=== PATIENT | female | born 1995 | race Caucasian/White ===

== ENCOUNTER → 2016-09-08 | Outpatient (CLI) | payer MEDICAID | LOC: OD 10:50 | PROVIDERS: ATTEND Obstetrics & Gynecology | DX: N91.2 Amenorrhea, unspecified (principal) | CPT/HCPCS: 36415; 84702 ==

== ENCOUNTER 2016-10-02 19:33 | Emergency (ER) | payer MEDICAID ==
[2016-10-02] MEDS ORDERED: ACETAMINOPHEN 325 MG TABLET PO ONE (20:24)
--- NOTE | 2016-10-02 20:25 | ER Document Report ---
ED Medical Screen (RME) - General Stated Complaint: LEFT FLANK PAIN,PAINFUL URINATION Mode of Arrival: Ambulatory Information source: Patient Notes: 21 y/o F presents to ED c/o left flank pain with associated dysuria over the last week. Reports is approximately 10 weeks . . Denies fever, hematuria, vaginal bleeding or discharge. I have greeted and performed a rapid initial assessment of this patient. A comprehensive ED assessment and evaluation of the patient, analysis of test results and completion of the medical decision making process will be conducted by additional ED providers. TRAVEL OUTSIDE OF THE [place] IN LAST 30 DAYS: No - Related Data Allergies/Adverse Reactions: No Known Allergies Allergy (Verified 02/20/15 21:34) Past Medical History Past Surgical History: Reports: Hx Gynecologic Surgery - Left fallopian tube removed Physical Exam - Vital signs Vitals: Temp Pulse Resp BP Pulse Ox 98.2 F 81 16 115/69 99 10/02/16 20:01 10/02/16 20:01 10/02/16 20:01 10/02/16 20:01 10/02/16 20:01 - General General appearance: Appears well, Alert In distress: None - Respiratory Respiratory status: No respiratory distress Course - Vital Signs Vital signs: Temp Pulse Resp BP Pulse Ox 98.2 F 81 16 115/69 99 10/02/16 20:01 10/02/16 20:01 10/02/16 20:01 10/02/16 20:01 10/02/16 20:01
[2016-10-02] MEDS ORDERED: ONDANSETRON 4 MG TAB.RAPDIS PO ONE (21:21)
--- NOTE | 2016-10-02 21:21 | ER Document Report ---
ED GI/ - General Chief Complaint: Low Back Pain Stated Complaint: LEFT FLANK PAIN,PAINFUL URINATION Mode of Arrival: Ambulatory Notes: Patient is a 21-year-old female, at 10 weeks gestation by last menstrual period, the comes emergency department for chief complaint of one week of worsening pain in her left flank, she states that she has pain with urination, flank pain is worse when she urinates, she states that over the past day or so she started to become nauseated intermittently. She denies vomiting, fever, denies any abdominal pain, denies vaginal discharge or bleeding. Denies history of kidney stones. TRAVEL OUTSIDE OF THE [place] IN LAST 30 DAYS: No - Related Data Allergies/Adverse Reactions: No Known Allergies Allergy (Verified 10/02/16 20:28) Past Medical History - General Information source: Patient - Social History Smoking Status: Former Smoker Chew tobacco use (# tins/day): No Frequency of alcohol use: None Drug Abuse: None Lives with: Family Family History: Reviewed & Not Pertinent Patient has suicidal ideation: No Patient has homicidal ideation: No - Medical History Medical History: Negative Renal/ Medical History: Denies: Hx Peritoneal Dialysis Past Surgical History: Reports: Hx Gynecologic Surgery - Left fallopian tube removed Review of Systems - Review of Systems Constitutional: No symptoms reported EENT: No symptoms reported Cardiovascular: No symptoms reported Respiratory: No symptoms reported Gastrointestinal: See HPI Genitourinary: See HPI Female Genitourinary: No symptoms reported Musculoskeletal: See HPI Skin: No symptoms reported Hematologic/Lymphatic: No symptoms reported Neurological/Psychological: No symptoms reported Physical Exam - Vital signs Vitals: Temp Pulse Resp BP Pulse Ox 98.2 F 81 16 115/69 99 10/02/16 20:01 10/02/16 20:01 10/02/16 20:01 10/02/16 20:01 10/02/16 20:01 Interpretation: Normal - General General appearance: Appears well, Alert In distress: None - HEENT Head: Normocephalic, Atraumatic Eyes: Normal Conjunctiva: Normal Extraocular movements intact: Yes Eyelashes: Normal Pupils: PERRL Mucous membranes: Normal Pharynx: Normal Neck: Normal - Respiratory Respiratory status: No respiratory distress Chest status: Nontender Breath sounds: Normal. No: Decreased air movement, Wheezing Chest palpation: Normal - Cardiovascular Rhythm: Regular. No: Tachycardia Heart sounds: Normal auscultation, S1 appreciated, S2 appreciated Murmur: No - Abdominal Inspection: Normal Distension: No distension Bowel sounds: Normal Tenderness: Nontender - Completely soft and nontender, no guarding. No: Tender , Guarding Organomegaly: No organomegaly - Back Back: Tender - Patient is tender in the left CVA area but also extending down along the paraspinal muscles down the lumbar spine. No midline tenderness, no saddle anesthesia, normal upper and lower extremity range of motion, normal distal neurovascular exam - Extremities General upper extremity: Normal inspection, Nontender, Normal color, Normal ROM , Normal temperature General lower extremity: Normal inspection, Nontender, Normal color, Normal ROM , Normal temperature, Normal weight bearing. No: Karen's sign - Neurological Neuro grossly intact: Yes Cognition: Normal Orientation: AAOx4 [place] Coma Scale Eye Opening: Spontaneous Yvan Coma Scale Verbal: Oriented [place] Coma Scale Motor: Obeys Commands Yvan Coma Scale Total: 15 Speech: Normal Motor strength normal: LUE, RUE, LLE, RLE Sensory: Normal - Psychological Associated symptoms: Normal affect, Normal mood - Skin Skin Temperature: Warm Skin Moisture: Dry Skin Color: Normal Course - Re-evaluation Re-evalutation: Urine generally unremarkable, however patient is complaining of dysuria specifically, she is , treating with Keflex. Patient has flank pain which appears to be muscular on examination, there is mild leukocytosis which is nonspecific, patient is not febrile, not tachycardic, not hypotensive. Chemistries unremarkable. HCG ordered by triage is positive. Patient requests something for her back pain dental bur sleep, given Flexeril, told her to use it minimally if possible, discussed follow-up and return precautions, patient and state understanding and agreement. - Vital Signs Vital signs: Temp Pulse Resp BP Pulse Ox 98.4 F 74 16 121/72 99 10/02/16 23:40 10/02/16 23:40 10/02/16 23:40 10/02/16 23:40 10/02/16 23:40 - Laboratory Result Diagrams: 10/02/16 20:55 10/02/16 20:55 Laboratory results interpreted by me: 10/02/16 10/02/16 10/02/16 20:55 20:55 20:55 WBC 13.8 H Absolute Neutrophils 10.6 H Beta HCG, Quant 60963.00 H Urine Protein 30 H Ur Leukocyte Esterase TRACE H Discharge - Discharge Clinical Impression: Flank pain, Dysuria Condition: Stable Disposition: HOME, SELF-CARE Additional Instructions: Take the Keflex antibiotic as directed for urinary symptoms. Take Zofran if needed for nausea, most likely related to . Follow up with [facility] as planned. Take Tylenol for pain, apply heat to her lower back, take the Flexeril only if needed. Return the emergency department for any concerning or worsening symptoms including vomiting, fever, abdominal pain, etc. Prescriptions: Cephalexin Monohydrate [Keflex 500 mg Capsule] 500 mg PO BID #10 capsule Cyclobenzaprine HCl [Flexeril 5 mg Tablet] 5 mg PO TID #15 tablet Ondansetron [Zofran Odt 4 mg Tablet] 1 - 2 tab PO Q4H PRN #30 tab.rapdis PRN Reason: For Nausea/Vomiting
[2016-10-02 21:35] LABS: ABSOLUTE BASOPHILS # (AUTO) 0.1 10^3/uL (0.0-0.2); ABSOLUTE EOSINOPHILS # (AUTO) 0.2 10^3/uL (0.0-0.6); ABSOLUTE LYMPHOCYTES (AUTO) 2.3 10^3/uL (0.5-4.7); ABSOLUTE MONOCYTES (AUTO) 0.7 10^3/uL (0.1-1.4); ABSOLUTE NEUT (AUTO) 10.6 10^3/uL (1.7-8.2); BASOPHILS % (AUTO) 0.6 % (0-2); EOSINOPHILS % (AUTO) 1.2 % (0-6); HEMATOCRIT 40.1 % (36.0-47.0); HEMOGLOBIN 14.1 g/dL (12.0-15.5); HGB HCT DIFFERENCE 2.2; LYMPHOCYTES % (AUTO) 16.7 % (13-45); MEAN CORPUSCULAR HEMOGLOBIN 31.5 pg (27.0-33.4); MEAN CORPUSCULAR HGB CONC 35.1 g/dL (32.0-36.0); MEAN CORPUSCULAR VOLUME 90 fl (80-97); MONOCYTES % (AUTO) 4.7 % (3-13); RED BLOOD COUNT 4.46 10^6/uL (3.72-5.28); RED CELL DISTRIBUTION WIDTH 13.9 % (11.5-14.0); SEGMENTED NEUTROPHILS % (AUTO) 76.8 % (42-78); WHITE BLOOD COUNT 13.8 10^3/uL (4.0-10.5)
[2016-10-02 21:40] LABS: APPEARANCE,URINE SLIGHTLY-CLOUDY; BILIRUBIN,URINE NEGATIVE (NEGATIVE); GLUCOSE, URINE NEGATIVE (NEGATIVE); KETONES,URINE NEGATIVE (NEGATIVE); LEUKOCYTE ESTERASE,URINE TRACE (NEGATIVE); NITRITE,URINE NEGATIVE (NEGATIVE); PROTEIN,URINE 30 mg/dL (NEGATIVE); URINE SPECIFIC GRAVITY 1.027; UROBILINOGEN,URINE NEGATIVE mg/dL (<2.0)
[2016-10-02 21:52] LABS: ALANINE AMINOTRANSFERASE 18 U/L (9-52); ALBUMIN 4.7 g/dL (3.5-5.0); ALKALINE PHOSPHATASE 54 U/L (38-126); ANION GAP 14 (5-19); ASPARTATE AMINO TRANSFERASE 19 U/L (14-36); BILIRUBIN,TOTAL 0.6 mg/dL (0.2-1.3); BLOOD UREA NITROGEN 7 mg/dL (7-20); CALCIUM 9.6 mg/dL (8.4-10.2); CARBON DIOXIDE 24 mmol/L (22-30); CHLORIDE 102 mmol/L (98-107); CREATININE RESULT 0.62 mg/dL (0.52-1.25); GLUCOSE 82 mg/dL (75-110); POTASSIUM 4.3 mmol/L (3.6-5.0); SODIUM 139.5 mmol/L (137-145); TOTAL PROTEIN 7.7 g/dL (6.3-8.2)
[2016-10-02] MEDS ORDERED: CEPHALEXIN 500 MG CAPSULE PO ONE (22:53)
[2016-10-02] MEDS ORDERED: CYCLOBENZAPRINE HCL 10 MG TABLET PO ONE (23:00)
[2016-10-02 23:50] VITALS: BP 121/72
== END 2016-10-02 23:40 | disposition home or self-care (01) ==
LOC: ER 19:33
DX: O26.91 Pregnancy related conditions, unspecified, first trimester (principal); M54.5 Low back pain; R30.0 Dysuria; R10.9 Unspecified abdominal pain; Z3A.10 10 weeks gestation of pregnancy
CPT/HCPCS: 99283; 36415; 84702; 85025; 80053; 81001; J3490 ×2; S0119

== ENCOUNTER 2016-11-01 23:40 | Emergency (ER) | payer MEDICAID ==
[2016-11-02] MEDS ORDERED: PENICILLIN G BENZATHINE 1.2 MILLION UNIT/2 ML DISP.SYRIN IM ONE (00:50)
[2016-11-02] MEDS ORDERED: HYDROCODONE/ACETAMINOPHEN 5-325 MG TABLET PO ONE (00:51)
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
[2016-11-02 04:02] VITALS: BP 118/69
== END 2016-11-02 04:03 | disposition home or self-care (01) ==
LOC: ER 23:40
DX: S03.2XXA Dislocation of tooth, initial encounter (principal); Z33.1 Pregnant state, incidental; Z3A.15 15 weeks gestation of pregnancy; X58.XXXA Exposure to other specified factors, initial encounter
CPT/HCPCS: 99283; 96372; 70486; J0561

== ENCOUNTER 2017-03-05 18:17 | Outpatient (CLI) | payer MEDICAID ==
[2017-03-05 19:32] LABS: APPEARANCE,URINE CLOUDY; BILIRUBIN,URINE NEGATIVE (NEGATIVE); GLUCOSE, URINE 150 mg/dL (NEGATIVE); KETONES,URINE NEGATIVE (NEGATIVE); LEUKOCYTE ESTERASE,URINE TRACE (NEGATIVE); NITRITE,URINE NEGATIVE (NEGATIVE); PROTEIN,URINE NEGATIVE (NEGATIVE); UROBILINOGEN,URINE NEGATIVE mg/dL (<2.0)
[2017-03-05 19:52] LABS: URINE BARBITURATES SCREEN NEGATIVE; URINE METHADONE SCREEN NEGATIVE; URINE OPIATES LOW NEGATIVE
[2017-03-05 20:27] LABS: URINE PHENCYCLIDINE SCREEN NEGATIVE
== END 2017-03-05 19:32 | disposition home or self-care (01) ==
LOC: LC 18:17
PROVIDERS: ATTEND Student in an Organized Health Care Education/Training Program
PROC: 4A1HXCZ Monitoring of Products of Conception, Cardiac Rate, External Approach (ICD-10-PCS; principal; 2017-03-05)
DX: O47.03 False labor before 37 completed weeks of gestation, third trimester (principal); Z3A.32 32 weeks gestation of pregnancy
CPT/HCPCS: 59025; 81001; 80307; G0480 ×2

== ENCOUNTER 2017-03-27 18:49 | Outpatient (CLI) | payer MEDICAID ==
--- NOTE | 2017-03-27 19:03 | Non Stress Test Report ---
Non Stress Test Datetime Report Generated by CPN: 03/27/2017 19:03 DEMOGRAPHIC EGA NST: 32.4 INDICATION Indication for Study: Ordered by Provider VITAL SIGNS Temperature - NST: 98.3 Pulse - NST: 88 RESP - NST: 14 NBPSYS NST: 116 NBPDIA NST: 73 MONITORING Monitor Explained: Monitor Explained; Test Explained; Patient Verbalized Understanding Time on Monitor: 03/05/2017 18:43 Time off Monitor: 03/05/2017 19:26 NST Duration: 43 NST INTERVENTIONS NST Interventions: PO Hydration Physician Notified NST: Dr Smith BABY A: [id number] BABY A Movement : Present Contraction Frequency : none FHR Baseline : 145 (Annotations: Data stored by [facility] on behalf of user) Accelerations : 15X15 Decelerations : None Variability : Moderate 6-25bpm NST Review: Meets Criteria for Reactive NST NST Review and Verified By : Angelito Nunez RN NST Results: Reactive NST REPORT Report Trigger: Send Report
[2017-03-27 19:30] LABS: APPEARANCE,URINE SLIGHTLY-CLOUDY; BILIRUBIN,URINE NEGATIVE (NEGATIVE); GLUCOSE, URINE NEGATIVE (NEGATIVE); KETONES,URINE NEGATIVE (NEGATIVE); LEUKOCYTE ESTERASE,URINE NEGATIVE (NEGATIVE); NITRITE,URINE NEGATIVE (NEGATIVE); PROTEIN,URINE NEGATIVE (NEGATIVE); UROBILINOGEN,URINE NEGATIVE mg/dL (<2.0)
[2017-03-27 19:33] LABS: AMNISURE (ROM) NEGATIVE (NEGATIVE)
[2017-03-27 19:45] LABS: URINE BARBITURATES SCREEN NEGATIVE; URINE METHADONE SCREEN NEGATIVE; URINE OPIATES LOW NEGATIVE; URINE PHENCYCLIDINE SCREEN NEGATIVE
[2017-03-27] MEDS ORDERED: HYDROXYZINE PAMOATE 50 MG CAPSULE PO ONE (20:34)
[2017-03-27] MEDS ORDERED: HYDROXYZINE PAMOATE 50 MG CAPSULE ONE (20:39)
[2017-03-27] MEDS ORDERED: RINGERS SOLUTION,LACTATED 1,250 ML IV ONE (21:16)
== END 2017-03-27 23:04 | disposition home or self-care (01) ==
LOC: LC 18:49
PROVIDERS: ATTEND Obstetrics & Gynecology
PROC: 4A1HXCZ Monitoring of Products of Conception, Cardiac Rate, External Approach (ICD-10-PCS; principal; 2017-03-27)
DX: Z34.93 Encounter for supervision of normal pregnancy, unspecified, third trimester (principal)
CPT/HCPCS: 59025; 84112; 81001; 80307; Q0114; J3490

== ENCOUNTER 2017-04-08 18:51 | Emergency (ER) | payer MEDICAID ==
[2017-04-08 19:07] VITALS: BP 124/77
[2017-04-08] MEDS ORDERED: LIDOCAINE 2% VISCOUS SOLN 20 ML UDCUP PO ONE (19:28)
--- NOTE | 2017-04-08 19:30 | ER Document Report ---
HPI - HPI Pain Level: 5 Notes: Patient is a 37 week female who presents the ED complaining of mouth pain to her recently excised #32 tooth. The mouth has been bothering her for the last day. Patient states that she had her tooth excised on . She has not noticed any obvious discharge, but noticed a little white area and that socket. Patient states that they did not suture the wound thereafter she is aware of. Patient states that she was on penicillin 2 days prior and has continued to be on penicillin since the procedure. She denies any drug allergies. Patient has been taking Tylenol with minimal relief. She still eating and drinking without any difficulties. Denies any headache, fever, neck pain/stiffness, URI, sore throat, chest pain, palpitations, syncope, cough, shortness of breath, wheeze, dyspnea, abdominal pain, nausea/vomiting/diarrhea, urinary retention, dysuria, hematuria, or rash. - ROS Notes: REVIEW OF SYSTEMS: CONSTITUTIONAL : Denies fever, chills, or sweats. Denies recent illness. EENT: see hpi CARDIOVASCULAR: Denies chest pain. Denies palpitations or racing or irregular heart beat. Denies ankle edema. RESPIRATORY: Denies cough, cold, or chest congestion. Denies shortness of breath, difficulty breathing, or wheezing. GASTROINTESTINAL: Denies abdominal pain or distention. Denies nausea, vomiting , or diarrhea. Denies blood in vomitus, stools, or per rectum. Denies black, tarry stools. Denies constipation. GENITOURINARY: Denies difficulty urinating, painful urination, burning, frequency, blood in urine, or discharge. MUSCULOSKELETAL: Denies back or neck pain or stiffness. Denies joint pain or swelling. SKIN: Denies rash, lesions or sores. NEUROLOGICAL: Denies confusion or altered mental status. Denies passing out or loss of consciousness. Denies dizziness or lightheadedness. Denies headache. Denies weakness or paralysis or loss of use of either side. Denies problems with gait or speech. Denies sensory loss, numbness, or tingling. ALL OTHER SYSTEMS REVIEWED AND NEGATIVE. Dictation was performed using [employer] voice recognition software - REPRODUCTIVE Reproductive: REPORTS: : - DERM Skin Color: Normal Past Medical History - Social History Smoking Status: Unknown if Ever Smoked Family History: None Patient has suicidal ideation: No Patient has homicidal ideation: No Renal/ Medical History: Denies: Hx Peritoneal Dialysis Past Surgical History: Reports: Hx Gynecologic Surgery - Left fallopian tube removed Vertical Provider Document - CONSTITUTIONAL Agree With Documented VS: Yes Notes: PHYSICAL EXAMINATION: GENERAL: Well-appearing, well-nourished and in no acute distress. HEAD: Atraumatic, normocephalic. EYES: Pupils equal round and reactive to light, extraocular movements intact, sclera anicteric, conjunctiva are normal. ENT: EAC clear b/l. TM's intact b/l without erythema, fluid, or perforation. Nares patent and without discharge. oropharynx clear without exudates. No tonsilar hypertrophy or erythema. Moist mucous membranes. No sinus tenderness. Uvula midline. No palatine shift. No tongue protrusion. No respiratory compromise. Mouth: Mild erythema with possible very small abscess to the socket of #32. No discharge noted. No facial swelling. + tenderness w/o fluid pocket. No I& D able to be performed. NECK: Normal range of motion, supple without lymphadenopathy. No rigidity/ meningismus. LUNGS: Breath sounds clear to auscultation bilaterally and equal. No wheezes rales or rhonchi. HEART: Regular rate and rhythm without murmurs, rubs, gallops. NEUROLOGICAL: Cranial nerves grossly intact. Normal speech, normal gait. Normal sensory, motor exams PSYCH: Normal mood, normal affect. SKIN: Warm, Dry, normal turgor, no rashes or lesions noted. - INFECTION CONTROL TRAVEL OUTSIDE OF THE [place] IN LAST 30 DAYS: No - RESPIRATORY O2 Sat by Pulse Oximetry: 99 Course - Re-evaluation Re-evalutation: 04/08/17 19:51 Patient is an afebrile, well-hydrated, 22-year-old female who is 37 weeks and presents with an infection to her right #32 status post tooth excision. Vitals are stable. PE otherwise unremarkable. Patient and mother are requesting narcotics, but I told them that this was not appropriate given her and condition. Patient is to stop her penicillin. I will send her home with a prescription for clindamycin (cat B) to take instead. Viscous Lidocaine (cat B) was also applied today which resolved her pain, and the patient may take a rest home with her to use as needed. Low suspicion for any meningitis, sepsis, peritonsillar/pharyngeal abscess, respiratory compromise, Stanislaw's, temporal arteritis, or other emergent systemic condition at this time. Patient is aware this condition can change from initial presentation and she needs to monitor symptoms closely. Conservative measures otherwise for symptoms. Call to schedule an appointment with a dentist for further evaluation and management. Recheck with your PCM this week as well. Return to the ED with any worsening/concerning symptoms otherwise as reviewed in discharge. Patient is in agreement. - Vital Signs Vital signs: Temp Pulse Resp BP Pulse Ox 98.3 F 98 16 124/77 99 04/08/17 19:04 04/08/17 19:04 04/08/17 19:04 04/08/17 19:04 04/08/17 19:04 Discharge - Discharge Clinical Impression: Toothache Condition: Stable Disposition: HOME, SELF-CARE Instructions: Clindamycin ([facility]), Toothache ([facility]) Additional Instructions: [place] and floss twice daily Maintain fluid intake Take antibiotics as directed Mouthwash, salt water gargles, peroxide rinse as needed Tylenol/ibuprofen as needed Recheck with PCM this week Call today/tomorrow and schedule an appointment with your dentist for further evaluation Return to the ED with any worsening symptoms and/or development of fever, headache, facial swelling, swelling of lips/tongue/throat, trouble swallowing, drooling, hoarseness, neck pain/stiffness, chest pain, palpitations, syncope, shortness of breath, trouble breathing, abdominal pain, n/v/d, numbness/tingling , or other worsening symptoms that are concerning to you. Prescriptions: Clindamycin HCl [Cleocin 300 mg Capsule] 300 mg PO QID #40 capsule Referrals: [facility] [Provider Group] - Follow up as needed DENTISTRY [Provider Group] - 05/01/17
== END 2017-04-08 19:32 | disposition home or self-care (01) ==
LOC: ER 18:51
DX: O99.613 Diseases of the digestive system complicating pregnancy, third trimester (principal); T81.4XXA Infection following a procedure, initial encounter; K04.7 Periapical abscess without sinus; Y83.6 Removal of other organ (partial) (total) as the cause of abnormal reaction of the patient, or of later complication, without mention of misadventure at the time of the procedure; Z3A.37 37 weeks gestation of pregnancy
CPT/HCPCS: 99282; J3490

== ENCOUNTER 2017-04-17 11:34 | Inpatient (IN) | payer MEDICAID ==
[2017-04-17] MEDS ORDERED: CEFAZOLIN SODIUM 2 GM in DEXTROSE 5%-WATER 50 ML IV PRN (11:50)
[2017-04-17 12:10] LABS: APPEARANCE,URINE SLIGHTLY-CLOUDY; BILIRUBIN,URINE NEGATIVE (NEGATIVE); GLUCOSE, URINE NEGATIVE (NEGATIVE); KETONES,URINE 20 mg/dL (NEGATIVE); LEUKOCYTE ESTERASE,URINE NEGATIVE (NEGATIVE); NITRITE,URINE NEGATIVE (NEGATIVE); PROTEIN,URINE NEGATIVE (NEGATIVE); URINE SPECIFIC GRAVITY 1.026; UROBILINOGEN,URINE NEGATIVE mg/dL (<2.0)
[2017-04-17] MEDS ORDERED: CITRIC ACID/SODIUM CITRATE ORAL SOLN 15 ML UDCUP ONE (12:12)
[2017-04-17] MEDS ORDERED: CEFAZOLIN 2 GM/D5W RTU 2 GM/50 ML RTUPB IV ONE (12:13)
[2017-04-17 12:23] LABS: URINE BARBITURATES SCREEN NEGATIVE; URINE METHADONE SCREEN NEGATIVE; URINE PHENCYCLIDINE SCREEN NEGATIVE
[2017-04-17 12:28] LABS: URINE OPIATES LOW UNCONFIRMED POSITIVE
[2017-04-17 12:32] LABS: HEMATOCRIT 33.6 % (36.0-47.0); HEMOGLOBIN 11.3 g/dL (12.0-15.5); HGB HCT DIFFERENCE 0.3; MEAN CORPUSCULAR HGB CONC 33.5 g/dL (32.0-36.0); MEAN CORPUSCULAR VOLUME 87 fl (80-97); RED BLOOD COUNT 3.89 10^6/uL (3.72-5.28); RED CELL DISTRIBUTION WIDTH 14.5 % (11.5-14.0); WHITE BLOOD COUNT 17.7 10^3/uL (4.0-10.5)
[2017-04-17] MEDS ORDERED: OXYTOCIN 10 UNIT/ML VIAL ONE ×2 (12:46→12:47)
[2017-04-17] MEDS ORDERED: ONDANSETRON HCL INJ/PF 4 MG/2 ML SDV ONE (12:46)
[2017-04-17] MEDS ORDERED: PROPOFOL INJ 200 MG/20 ML VIAL IV ONE (12:46)
[2017-04-17] MEDS ORDERED: MIDAZOLAM 2 MG/2 ML INJ ONE (12:47)
[2017-04-17] MEDS ORDERED: FENTANYL CITRATE INJ/PF 250 MCG/5 ML AMPULE ONE (12:47)
[2017-04-17 12:50] LABS: BASOPHILS % (MANUAL) 0 % (0-2); EOSINOPHILS % (MANUAL) 0 % (0-6); LYMPHOCYTES % (MANUAL) 2 % (13-45); TOTAL CELLS COUNTED 100
[2017-04-17 12:51] LABS: ANISOCYTOSIS SLIGHT; TOXIC GRANULATION 2+
[2017-04-17] MEDS ORDERED: ACETAMINOPHEN 100 ML IV ONE (13:36)
[2017-04-17] MEDS ORDERED: ACETAMINOPHEN 100 ML IV PRN (13:41)
[2017-04-17] MEDS ORDERED: FENTANYL CITRATE INJ/PF 100 MCG/2 ML AMPUL ONE (13:52)
[2017-04-17] MEDS ORDERED: OXYTOCIN/NORMAL SALINE 20 UNIT/1,000 ML RTUINJ INJ PRN (13:55)
[2017-04-17] MEDS ORDERED: MEASLES,MUMPS&RUBELLA VACC/PF 0.5 ML VIAL SUBCUT PRN (14:00)
[2017-04-17] MEDS ORDERED: RINGERS SOLUTION,LACTATED 1,000 ML IV SCH (14:00)
[2017-04-17] MEDS ORDERED: DIPH/PERTUSS(ACELL)/TETANUS VAC/PF 0.5 ML SYR (>=10YO) IM PRN (14:00)
[2017-04-17] MEDS ORDERED: ACETAMINOPHEN 325 MG TABLET PO PRN (14:00)
[2017-04-17] MEDS ORDERED: OXYCODONE-ACETAMINOPHEN 5-325 MG TABLET PO PRN ×2 (14:00→14:51)
[2017-04-17] MEDS ORDERED: PROMETHAZINE HCL INJ 25 MG/1 ML VIAL IM PRN (14:00)
[2017-04-17] MEDS ORDERED: MORPHINE SULFATE 10 MG/ML INJ ONE (14:33)
--- NOTE | 2017-04-17 14:34 | Delivery Summary ---
Del Sum A-C Datetime Report Generated by CPN: 04/17/2017 14:33 DELIVERY PERSONNEL DELIVERY PERSONNEL: [id number] Delivery Doctor:: Adilson Phelan DO Anesthesiologist:: Griselda Gleason MD LEGAL COMPLIANCE OFFICER:: Miguel Son CRNA Labor and Delivery Nurse:: Shae Shaffer RN Labor and Delivery Nurse:: Ailyn Cespedes RN Nursery Nurse:: Ailyn Tolbert RN Student Observers:: YAQUELIN Hill student Parking Technician/GENERATOR OPERATOR: Lorin Jain CST Parking Technician/GENERATOR OPERATOR: ST Ang Additional Personnel: : Wendy Burns NURSE SUPERVISOR MATERNAL INFORMATION Delivery Anesthesia: General Estimated Blood Loss (ml): 600 Maternal Complications: Other LABOR SUMMARY EDC: 04/26/2017 00:00 No. Babies in Womb: 1 Attempted: No Labor Anesthesia: None LABOR INFORMATION Reason for Induction: Not Applicable Onset of Labor: 04/17/2017 04:00 Oxytocin: N/A Group B Beta Strep: Negative Steroids Given: None Reason Steroids Not Administered: Not Applicable MEMBRANES Membranes Rupture Method: Artificial Rupture of Membranes: 04/17/2017 12:38 Length of Rupture (hr): 0.03 Amniotic Fluid Color: Clear Amniotic Fluid Amount: Small Amniotic Fluid Odor: Normal STAGES OF LABOR Stage 3 hr: 0 Stage 3 min: 0 Total Time in Labor hr: 8 Total Time in Labor min: 40 CSECTION DELIVERY Primary Indication: Other Other Primary Indication: Hx of shoulder dystocia Secondary Indication: N/A CSection Urgency: Emergency Labor: Labor Elective: Elective CSection Incision: Lower Uterine Transverse Sterilization Procedure: Ring and Clip BABY A INFORMATION Infant Delivery Date/Time: 04/17/2017 12:40 Method of Delivery: Born in Route : No : N/A Forceps: N/A Vacuum Extraction: N/A Shoulder Dystocia : Yes PRESENTATION/POSITION BABY A Presentation: Cephalic Cephalic Presentation: Vertex Breech Presentation: N/A PLACENTA INFORMATION BABY A Placenta Delivery Time : 04/17/2017 12:40 Placenta Method of Delivery: Manual Removal Placenta Status: Delivered SCORES BABY A Heart Rate 1 min: >100 bpm Resp Effort 1 min: Good Cry Reflex Irritability 1 min: Cough or Sneeze or Pulls Away Muscle Tone 1 min: Active Motion Color 1 min: Body [place], Extremities Blue Resuscitation Effort 1 min: N/A SCORE 1 MIN: 9 Heart Rate 5 min: >100 bpm Resp Effort 5 min: Good Cry Reflex Irritability 5 min: Cough or Sneeze or Pulls Away Muscle Tone 5 min: Active Motion Color 5 min: Body [place], Extremities Blue Resuscitation Effort 5 min: N/A SCORE 5 MIN: 9 INFANT INFORMATION BABY A Gestational Age at Delivery: 38.5 Gestational Status: Early Term- 37- 38.6 Weeks Outcome : Liveborn Condition : Stable Infant Sex: Male IDENTIFICATION BABY A Infant Verification Date/Time: 04/17/2017 12:43 ID Band Number: [id number] Mother's Name Verified: Yes Infant RN Verifying : Ron shaffer RN / C. Girolamo, RN WEIGHT/LENGTH BABY A Birthweight (gm): 3965 Infant Weight (lb): 8 Infant Weight (oz): 12 Infant Length (in): 20.25 Length (cm): 51.44 CORD INFORMATION BABY A No. Cord Vessels: 3 Nuchal Cord : N/A Cord Blood Taken: Yes-For Storage (Mom's Blood type +) Suction: None ASSESSMENT BABY A Complications: None Physical Findings at Delivery: Within Normal Limits Respirations: Appears Normal Skin to Skin: No Assistant Project Engineer/ALS Called : No Infant Care By: Ailyn Tolbert RN Transferred To: Nursery
[2017-04-17] MEDS ORDERED: OXYTOCIN/NORMAL SALINE 20 UNIT/1,000 ML RTUINJ IV PRN (14:51)
--- NOTE | 2017-04-17 15:19 | Admission Physical ---
Datetime Report Generated by CPN: 04/17/2017 15:19 CURRENT ADMISSION Chief Complaint: Uterine Contractions Indication for Induction: Not Applicable Admit Impression- Other: h/o shoulder dystocia Admit Plan: Admit to Unit; Initiate Section Protocol ALLERGIES Medication Allergies: No Medication Allergies: No Known Allergies (04/17/2017) Medication Allergies: No Known Allergies (10/02/2016) Latex: No Latex Allergies OBSTETRICAL HISTORY EDC: 04/26/2017 00:00 : 3 Para: 2 Term: 2 : 0 SAB: 0 IAB: 0 Ectopic: 0 Livin Cesareans: 0 VBACs: 0 Multiple Births: 0 Gestational Diabetes: No Rh Sensitization: No Incompetent Cervix: No EARNESTINE: No Infertility: No ART Treatment: No Uterine Anomaly: No IUGR: No Hx Previous C/S: No Macrosomia: No Hx Loss/Stillborn: No PIH: No Hx : No Placenta Previa/Abruption: No Depression/PP Depression: No PTL/PROM: No Post Hemorrhage: No Current Procedures: Ultrasound Obstetrical History Comments: G1 - 2013 41 wks 7 lb 11 oz G2 - 2015 39 wks 8 lb 13 oz shoulder dystocia G3 - current (pelvic seperation) SEE RECORDS Alcohol: No Marijuana : No Cocaine: No Other Illicit Drugs: No Cigarettes: Former Smoker. [id number] MEDICAL HISTORY Diabetes: No Blood Transfusion: No Pulmonary Disease (Asthma, TB): No Breast Disease: No Hypertension: No Financial Services Intern Surgery: Yes Heart Disease: No Hosp/Surgery: Yes Autoimmune Disorder: No Anesthetic Complications: No Kidney Disease: No Abnormal Pap Smear: No Neuro/Epilepsy: No Psychiatric Disorders: No Other Medical Diseases: No Hepatitis/Liver Disease: No Significant Family History: No Varicosities/Phlebitis: No Trauma/Violence : No Thyroid Dysfunction: No INFECTIOUS HISTORY Gonorrhea: No Genital Herpes: No Chlamydia: No Tuberculosis: No Syphilis: No Hepatitis: No HIV/AIDS Exposure: No Rash or Viral Illness: No HPV: No PHYSICAL EXAM General: Normal HEENT: Normal Neurologic: Normal Thyroid: Deferred Heart: Normal Lungs: Normal Breast: Deferred Back: Normal Abdomen: Normal Genitourinary Exam: Normal Extremities: Normal DTRs: Normal Pelvic Type: Adequate Vital Signs: Reviewed; Within Normal Limits VAGINAL EXAM Dilatation: 7 Effacement: 100 Station: 0 MEMBRANES Membranes: Intact FETUS A EGA: 38.5 Monitoring: External US FHR- Baseline: 140 Variability: Moderate 6-25bpm Accelerations: 15X15 Decelerations: None FHR Category: Category I Presentation: Vertex Admit Comment: Will proceed with Primary C/S secondary to h/o shoulder dystocia PLANS FOR LABOR AND DELIVERY Labor and Delivery: None Pain Management: Epidural Feeding Preference: Formula Benefit of Breast Feed Discussed: Yes Circumcision: Yes INFORMED CONSENT Signature: with User ID: [email or web address]
[2017-04-17] MEDS ORDERED: SUCCINYLCHOLINE CHLORIDE INJ 200 MG/10 ML VIAL ONE (15:33)
[2017-04-17] MEDS: HYDROMORPHONE HCL INJ/PF 2 MG/ML AMPULE IV PRN ×2 (15:52→19:47)
[2017-04-17] MEDS: DOCUSATE SODIUM 100 MG CAPSULE PO SCH ×2 (17:40→17:46)
[2017-04-17] MEDS: OXYCODONE-ACETAMINOPHEN 5-325 MG TABLET PO PRN ×2 (18:23→22:30)
[2017-04-18] MEDS: OXYCODONE-ACETAMINOPHEN 5-325 MG TABLET PO PRN ×4 (02:55→20:05)
[2017-04-18 06:29] LABS: HEMATOCRIT 25.6 % (36.0-47.0); HGB HCT DIFFERENCE 0.2; MEAN CORPUSCULAR HEMOGLOBIN 29.1 pg (27.0-33.4); MEAN CORPUSCULAR HGB CONC 33.5 g/dL (32.0-36.0); MEAN CORPUSCULAR VOLUME 87 fl (80-97); RED BLOOD COUNT 2.95 10^6/uL (3.72-5.28); RED CELL DISTRIBUTION WIDTH 14.3 % (11.5-14.0); WHITE BLOOD COUNT 11.3 10^3/uL (4.0-10.5)
[2017-04-18 06:30] LABS: HEMOGLOBIN 8.6 g/dL (12.0-15.5)
[2017-04-18] MEDS: SIMETHICONE 80 MG TAB.CHEW PO PRN ×2 (08:01→17:11)
[2017-04-18] MEDS: PRENATAL VITAMIN W-O CA NO5/FE FUMARATE/FA CAPSULE PO SCH (11:23)
[2017-04-18] MEDS: DOCUSATE SODIUM 100 MG CAPSULE PO SCH ×3 (11:24→17:58)
--- NOTE | 2017-04-18 12:06 | PDOC PROGRESS REPORT ---
Subjective-OB Subjective: Post Delivery Day: 1 22 year old. Denies any needs at this time, lochia stable, pain well controlled , voiding without difficulty, tolerating diet. Physical Exam (OB) Vital Signs: Temp Pulse Resp BP Pulse Ox 100.2 F 102 H 16 126/69 H 99 04/18/17 08:10 04/18/17 08:10 04/18/17 08:10 04/18/17 08:10 04/18/17 08:10 Intake & Output 04/17/17 04/18/17 04/19/17 06:59 06:59 06:59 Intake Total 1375 700 600 Output Total 1875 Balance 1375 -1175 600 Weight 83.5 kg - Dressing Removed: No - medipore dressing D&I, no drainage, redness or swelling noted Incision: Dressing - Lochia Lochia Amount: Small 10-25 ml Lochia Color: Rubra/Red - Abdomen Description: Tender, Soft Hernia Present: No Fundal Description: Firm, Midline Fundal Height: u/u - u/2 Objective-Diagnostic Laboratory: 04/18/17 06:13 04/17/17 04/17/17 04/17/17 11:45 12:19 12:19 WBC 17.7 H RBC 3.89 Hgb 11.3 L Hct 33.6 L MCV 87 MCH 29.0 MCHC 33.5 RDW 14.5 H Plt Count 219 Seg Neutrophils % Not Reportable Lymphocytes % Not Reportable Monocytes % Not Reportable Eosinophils % Not Reportable Basophils % Not Reportable Absolute Neutrophils Not Reportable Absolute Lymphocytes Not Reportable Absolute Monocytes Not Reportable Absolute Eosinophils Not Reportable Absolute Basophils Not Reportable Urine Color YELLOW Urine Appearance SLIGHTLY-CLOUDY Urine pH 6.0 Ur Specific [place] 1.026 Urine Protein NEGATIVE Urine Glucose (UA) NEGATIVE Urine Ketones 20 H Urine Blood NEGATIVE Urine Nitrite NEGATIVE Ur Leukocyte Esterase NEGATIVE Blood Type O POSITIVE Antibody Screen NEGATIVE 04/18/17 06:13 WBC 11.3 H RBC 2.95 L Hgb 8.6 L D Hct 25.6 L MCV 87 MCH 29.1 MCHC 33.5 RDW 14.3 H Plt Count 164 Seg Neutrophils % Lymphocytes % Monocytes % Eosinophils % Basophils % Absolute Neutrophils Absolute Lymphocytes Absolute Monocytes Absolute Eosinophils Absolute Basophils Urine Color Urine Appearance Urine pH Ur Specific [place] Urine Protein Urine Glucose (UA) Urine Ketones Urine Blood Urine Nitrite Ur Leukocyte Esterase Blood Type Antibody Screen Assessment and Plan(PN) - Assessment and Plan (1) delivery delivered Is this a current diagnosis for this admission?: Yes Plan: routine postop care - Time Spent with Patient Time with patient: Less than 15 minutes Critical Time spent with patient: Less than 15 minutes Medications reviewed and adjusted accordingly: Yes - Disposition Anticipated Discharge: Home Within: within 24 hours
[2017-04-18] MEDS ORDERED: OXYCODONE HCL IR 5 MG TABLET ONE (17:12)
[2017-04-18] MEDS ORDERED: OXYCODONE HCL IR 5 MG TABLET PO ONE (18:30)
[2017-04-19] MEDS: OXYCODONE-ACETAMINOPHEN 5-325 MG TABLET PO PRN ×2 (00:14→06:33)
--- NOTE | 2017-04-19 09:27 | PDOC PROGRESS REPORT ---
Subjective-OB Subjective: Post Delivery Day: 22 year old. Denies any needs at this time. Ready to go home. Physical Exam (OB) Vital Signs: Temp Pulse Resp BP Pulse Ox 98.3 F 96 20 117/67 100 04/19/17 08:10 04/19/17 08:10 04/19/17 08:10 04/19/17 03:30 04/19/17 08:10 Intake & Output 04/18/17 04/19/17 04/20/17 06:59 06:59 06:59 Intake Total 700 1500 Output Total 1875 Balance -1175 1500 Weight 83.5 kg - Dressing Removed: Yes Incision: Well Approximated Closure Type: Opsite - Lochia Lochia Amount: Scant < 10 ml Lochia Color: Rubra/Red - Abdomen Description: Tender, Soft, Round Hernia Present: No Bowel Sounds: Normoactive Flatus Presence: Present Stool: No Fundal Description: Firm, Midline Fundal Height: u/u - u/2 Objective-Diagnostic Laboratory: 04/18/17 06:13 Assessment and Plan(PN) - Time Spent with Patient Medications reviewed and adjusted accordingly: Yes - Disposition Anticipated Discharge: Home
--- NOTE | 2017-04-19 09:40 | PDOC DISCHARGE SUMMARY ---
Final Diagnosis Discharge Date: 04/19/17 - Final Diagnosis (1) Anemia sec acute blood loss Is this a current diagnosis for this admission?: Yes (2) delivery delivered Is this a current diagnosis for this admission?: Yes (3) History of depression Is this a current diagnosis for this admission?: Yes (4) History of shoulder dystocia in prior Is this a current diagnosis for this admission?: Yes (5) Hx of unilateral salpingectomy Is this a current diagnosis for this admission?: Yes (6) Is this a current diagnosis for this admission?: Yes Discharge Data - Discharge Medication Home Medications: Pediatric Multivitamin No.76 [Flintstones Complete] 1 each PO DAILY 03/27/17 Clindamycin HCl [Cleocin 300 mg Capsule] 300 mg PO QID #40 capsule 04/08/17 Docusate Sodium [Colace 100 mg Capsule] 100 mg PO BID #30 capsule 04/19/17 Ferrous Sulfate 325 mg PO BID #60 tablet. 04/19/17 Ibuprofen 800 mg PO Q6HP PRN #30 tablet 04/19/17 Oxycodone HCl/Acetaminophen [Percocet 5-325 mg Tablet] 1 tab PO Q4HP PRN #20 tablet 04/19/17 Gestational Age: 38.5 wks Reason(s) for Admission: Onset of Labor Procedures: Ultrasound Intrapartum Procedure(s): : Low Cervical, Transverse - [place] Data Baby 1 Male at 1 minute: 9 at 5 minutes: 9 Weight: 3.969 kg Home with Mother: Yes Complications: No - Diagnosis Test Laboratory: Temp Pulse Resp BP Pulse Ox 98.3 F 96 20 117/67 100 04/19/17 08:10 04/19/17 08:10 04/19/17 08:10 04/19/17 03:30 04/19/17 08:10 04/17/17 04/17/17 04/18/17 11:45 12:19 06:13 RBC 3.89 2.95 L Hgb 11.3 L 8.6 L D Hct 33.6 L 25.6 L Urine Opiates Screen UNCONFIRMED POSITIVE - Discharge information/Instructions Discharge Activity: Activity As Tolerated, Balance Activity w/Rest, No Lifting Over 10 Pounds, No Lifting/Push/Pulling, Non-Ambulatory Child, Pelvic Rest, Slowly Increase Activity, No tub bath Discharge Diet: Regular Disposition: HOME, SELF-CARE Follow up with: [facility] in: 1, Weeks
[2017-04-19] MEDS: DOCUSATE SODIUM 100 MG CAPSULE PO SCH (09:58)
[2017-04-19] MEDS: PRENATAL VITAMIN W-O CA NO5/FE FUMARATE/FA CAPSULE PO SCH (09:58)
[2017-04-19 10:18] VITALS: BP 130/67
[2017-04-24 08:12] LABS: OPIATE CONFIRMATION Positive (.)
== END 2017-04-19 12:12 | disposition home or self-care (01) | DRG 765 ==
LOC: EDSTATUS 11:42 → LC 11:52 → LR 12:08 → 2N 15:16
PROVIDERS: ADMIT Obstetrics & Gynecology; ATTEND Obstetrics & Gynecology
PROC: 10D00Z1 Extraction of Products of Conception, Low, Open Approach (ICD-10-PCS; principal; 2017-04-17)
PROC: 0UL70CZ Occlusion of Bilateral Fallopian Tubes with Extraluminal Device, Open Approach (ICD-10-PCS; 2017-04-17)
PROC: 10907ZC Drainage of Amniotic Fluid, Therapeutic from Products of Conception, Via Natural or Artificial Opening (ICD-10-PCS; 2017-04-17)
DX: O82 Encounter for cesarean delivery without indication (principal); D62 Acute posthemorrhagic anemia; Z3A.38 38 weeks gestation of pregnancy; Z37.0 Single live birth; O99.02 Anemia complicating childbirth; Z79.899 Other long term (current) drug therapy; Z86.59 Personal history of other mental and behavioral disorders
CPT/HCPCS: 1961; 36415; 80307; 80361; 81005; 85025; 85027; 86592; 86850; 86900; 86901; 94799; G0480; G6056; J0131; J0330; J0690; J1170; J2250; J2270; J2405; J2590; J2704; J3010; J3490; J7120

== ENCOUNTER 2018-03-19 16:22 | Emergency (ER) | payer MEDICAID ==
[2018-03-19 16:29] VITALS: BP 123/70
[2018-03-19] MEDS ORDERED: PHENAZOPYRIDINE HCL 100 MG TABLET PO ONE (17:43)
[2018-03-19] MEDS ORDERED: KETOROLAC TROMETHAMINE INJ/PF 30 MG/1 ML SDV IV ONE (17:43)
[2018-03-19] MEDS ORDERED: ONDANSETRON HCL INJ/PF 4 MG/2 ML SDV IV ONE (17:44)
[2018-03-19] MEDS ORDERED: NORMAL SALINE 1000 ML 1,000 ML IV PRN (17:44)
[2018-03-19 18:04] LABS: ABSOLUTE EOSINOPHILS # (AUTO) 0.1 10^3/uL (0.0-0.6); ABSOLUTE LYMPHOCYTES (AUTO) 1.8 10^3/uL (0.5-4.7); ABSOLUTE MONOCYTES (AUTO) 0.6 10^3/uL (0.1-1.4); ABSOLUTE NEUT (AUTO) 7.5 10^3/uL (1.7-8.2); BASOPHILS % (AUTO) 0.3 % (0-2); EOSINOPHILS % (AUTO) 1.2 % (0-6); HEMATOCRIT 43.7 % (36.0-47.0); HEMOGLOBIN 14.9 g/dL (12.0-15.5); LYMPHOCYTES % (AUTO) 18.1 % (13-45); MEAN CORPUSCULAR HEMOGLOBIN 30.9 pg (27.0-33.4); MEAN CORPUSCULAR HGB CONC 34.2 g/dL (32.0-36.0); MEAN CORPUSCULAR VOLUME 90 fl (80-97); PLATELET COUNT 211 10^3/uL (150-450); RED BLOOD COUNT 4.84 10^6/uL (3.72-5.28); RED CELL DISTRIBUTION WIDTH 14.2 % (11.5-14.0); SEGMENTED NEUTROPHILS % (AUTO) 74.4 % (42-78); TOTAL CELLS COUNTED % (AUTO) 100 %; WHITE BLOOD COUNT 10.1 10^3/uL (4.0-10.5)
[2018-03-19 18:14] LABS: ALANINE AMINOTRANSFERASE 19 U/L (9-52); ALBUMIN 4.6 g/dL (3.5-5.0); ALKALINE PHOSPHATASE 54 U/L (38-126); ANION GAP 14 (5-19); ASPARTATE AMINO TRANSFERASE 19 U/L (14-36); BILIRUBIN,DIRECT 0.2 mg/dL (0.0-0.4); BILIRUBIN,TOTAL 0.7 mg/dL (0.2-1.3); BLOOD UREA NITROGEN 12 mg/dL (7-20); CALCIUM 9.2 mg/dL (8.4-10.2); CARBON DIOXIDE 23 mmol/L (22-30); CHLORIDE 108 mmol/L (98-107); GLUCOSE 84 mg/dL (75-110); LIPASE 47.8 U/L (23-300); POTASSIUM 4.4 mmol/L (3.6-5.0); TOTAL PROTEIN 7.5 g/dL (6.3-8.2)
[2018-03-19 18:20] LABS: APPEARANCE,URINE SLIGHTLY-CLOUDY; BILIRUBIN,URINE NEGATIVE (NEGATIVE); COLOR,URINE YELLOW; GLUCOSE, URINE NEGATIVE (NEGATIVE); KETONES,URINE NEGATIVE (NEGATIVE); LEUKOCYTE ESTERASE,URINE NEGATIVE (NEGATIVE); NITRITE,URINE NEGATIVE (NEGATIVE); PROTEIN,URINE NEGATIVE (NEGATIVE); URINE SPECIFIC GRAVITY 1.023; UROBILINOGEN,URINE NEGATIVE mg/dL (<2.0)
[2018-03-19] MEDS ORDERED: NORMAL SALINE 1000 ML 1,000 ML IV ONE (18:45)
[2018-03-19] MEDS ORDERED: LIDOCAINE 2% URO-JET 5 ML KIT MM ONE (19:14)
[2018-03-19] MEDS ORDERED: ONDANSETRON 4 MG TAB.RAPDIS PO ONE (19:16)
--- NOTE | 2018-03-19 19:43 | ER Document Report ---
ED General - General Chief Complaint: Abdominal Pain Stated Complaint: DIARRHEA, PAINFUL URINATION Time Seen by Provider: 03/19/18 17:34 TRAVEL OUTSIDE OF THE [place] IN LAST 30 DAYS: No - HPI Patient complains to provider of: Nausea vomiting diarrhea painful urination abdominal pain Notes: Patient coming in for the above-stated symptoms ongoing for approximately 3 days. Patient states significant burning with urination. Patient also states pain in the right side of her abdomen. Patient is more crampy denies any fevers or chills. Patient otherwise resting comfortable, evaluation. - Related Data Allergies/Adverse Reactions: No Known Allergies Allergy (Verified 04/17/17 13:42) Past Medical History - Social History Smoking Status: Current Every Day Smoker Chew tobacco use (# tins/day): No Frequency of alcohol use: None Drug Abuse: None Family History: None Patient has suicidal ideation: No Patient has homicidal ideation: No Renal/ Medical History: Denies: Hx Peritoneal Dialysis Past Surgical History: Reports: Hx Gynecologic Surgery - Left fallopian tube removed Review of Systems - Review of Systems Constitutional: No symptoms reported EENT: No symptoms reported Cardiovascular: No symptoms reported Respiratory: No symptoms reported Gastrointestinal: Abdominal pain, Diarrhea, Nausea, Vomiting Genitourinary: Burning Female Genitourinary: No symptoms reported Musculoskeletal: No symptoms reported Skin: No symptoms reported Hematologic/Lymphatic: No symptoms reported Neurological/Psychological: No symptoms reported -: Yes All other systems reviewed and negative Physical Exam - Vital signs Vitals: Temp Pulse Resp BP Pulse Ox 99.0 F 81 18 123/70 98 03/19/18 16:28 03/19/18 16:28 03/19/18 16:28 03/19/18 16:28 03/19/18 16:28 Interpretation: Normal - General General appearance: Appears well, Alert - HEENT Head: Normocephalic, Atraumatic Eyes: Normal Pupils: PERRL - Respiratory Respiratory status: No respiratory distress Chest status: Nontender Breath sounds: Normal Chest palpation: Normal - Cardiovascular Rhythm: Regular Heart sounds: Normal auscultation Murmur: No - Abdominal Inspection: Normal Distension: No distension Bowel sounds: Normal Tenderness: Nontender Organomegaly: No organomegaly - Back Back: Normal, Nontender - Extremities General upper extremity: Normal inspection, Nontender, Normal color, Normal ROM , Normal temperature General lower extremity: Normal inspection, Nontender, Normal color, Normal ROM , Normal temperature, Normal weight bearing. No: Karen's sign - Neurological Neuro grossly intact: Yes Cognition: Normal Orientation: AAOx4 Yvan Coma Scale Eye Opening: Spontaneous Yvan Coma Scale Verbal: Oriented Yvan Coma Scale Motor: Obeys Commands Emerson Coma Scale Total: 15 Speech: Normal Motor strength normal: LUE, RUE, LLE, RLE Sensory: Normal - Psychological Associated symptoms: Normal affect, Normal mood - Skin Skin Temperature: Warm Skin Moisture: Dry Skin Color: Normal Course - Re-evaluation Re-evalutation: 03/19/18 20:56 The patient presents with abdominal pain without signs of peritonitis or other life-threatening or serious etiology. The patient appears stable for discharge and has been instructed to return immediately if the symptoms worsen in any way , or in 8-12hr if not improved for re-evaluation. The patient has been instructed to return if the symptoms worsen or change in any way. Laboratory studies not she in signs are significant for infection. Examination otherwise benign. Patient's urinalysis does not show any signs of infection. We will give the patient a Urojet to applied to the vaginal area prior to any urination also treated with Pyridium and Zofran for nausea. Wants patient has a viral etiology of her symptoms we will send urine for culture as it patient does have dysuria. - Vital Signs Vital signs: Temp Pulse Resp BP Pulse Ox 99.0 F 81 18 123/70 98 03/19/18 16:28 03/19/18 16:28 03/19/18 16:28 03/19/18 16:28 03/19/18 16:28 - Laboratory Result Diagrams: 03/19/18 17:41 03/19/18 17:41 Laboratory results interpreted by me: 03/19/18 03/19/18 17:41 17:41 RDW 14.2 H Chloride 108 H Discharge - Discharge Clinical Impression: Dysuria Diarrhea Qualifiers: Diarrhea type: unspecified type Qualified Code(s): R19.7 - Diarrhea, unspecified Condition: Good Disposition: HOME, SELF-CARE Instructions: Abdominal Pain ([facility]), Diarrhea, Nonspecific ([facility]), Gastroenteritis (adult) ([facility]) Additional Instructions: Your laboratory studies urinalysis does not show any significant signs of any acute pathology. Recommend continuing with the Pyridium along with Tylenol Motrin to help out with pain control. We will send urine for culture to look for underlying infection I do not see any laboratory results today. I also recommend for any nausea to use Zofran as provided. Follow-up with your primary care physician return to the ER symptoms worsen. You can apply the lidocaine gel to the area of discomfort prior to urinating Prescriptions: Ondansetron [Zofran Odt 4 mg Tablet] 4 mg PO Q4HP PRN #30 tab.rapdis PRN Reason: Phenazopyridine HCl [Pyridium 100 Mg Tablet] 100 mg PO TID #15 tablet Forms: Return to Work
== END 2018-03-19 19:40 | disposition home or self-care (01) ==
LOC: ER 16:22
DX: R30.0 Dysuria (principal); R19.7 Diarrhea, unspecified; R11.2 Nausea with vomiting, unspecified; R10.9 Unspecified abdominal pain; F17.200 Nicotine dependence, unspecified, uncomplicated; Z90.79 Acquired absence of other genital organ(s)
CPT/HCPCS: 99284; 96361; 96374; 96375; 36415; 87086; 84702; 83690; 85025; 80053; 81001; S0119; J1885; J3490 ×2; J2405; J7030

== ENCOUNTER 2018-04-26 17:20 | Emergency (ER) | payer OTHER, MEDICAID ==
[2018-04-26 17:35] VITALS: BP 117/66
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
== END 2018-04-26 19:11 | disposition home or self-care (01) ==
LOC: ER 17:20
PROC: 2W3CX1Z Immobilization of Right Lower Arm using Splint (ICD-10-PCS; principal; 2018-04-26)
DX: S69.91XA Unspecified injury of right wrist, hand and finger(s), initial encounter (principal); V89.2XXA Person injured in unspecified motor-vehicle accident, traffic, initial encounter; Y92.410 Unspecified street and highway as the place of occurrence of the external cause; T14.8XXA Other injury of unspecified body region, initial encounter; F17.200 Nicotine dependence, unspecified, uncomplicated
CPT/HCPCS: 99284; 73130; 73110; L3908